=== PATIENT | male | born 1955 | race Caucasian/White ===

== ENCOUNTER 2017-09-16 09:53 | Observation (INO) ==
--- NOTE | 2017-09-16 09:45 | Anesthesia Evaluation PreOp ---
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 Any Significant HX Other Medical History: Diabetes Type II, GERD Anesthesia History: No Prior Anesthetic Complications, Past Anesthesia Alcohol Use: rarely Drug use: none Medications and Allergies 3 Allergy/AdvReac Type Severity Reaction Status Date / Time [facility] AdvReac See Verified 09/16/17 11:20 Comments - Meds/Allergy Pre-op Review Medications Reviewed: Yes Allergies Reviewed: Yes Beta Blockers on Current Med List: Yes If Beta Blockers taken, Date/Time (Last Dose taken): 09/16/2017 at 0700 Anesthesia Results - Labs Laboratory Tests 08/12/17 15:28 POC Creatinine 1.40 H - Imaging EKG: report reviewed (09/12/2017 SR, old anterior infarct) Anesthesia Exam O2 Sat Height 1.69 m Height 1.69 m Weight 99.79 kg Weight 99.79 kg O2 Sat by Pulse Oximetry 96 Vital Signs Temp Pulse Resp BP Pulse Ox 97.9 F 76 18 155/101 96 09/16/17 10:15 09/16/17 10:15 09/16/17 10:15 09/16/17 10:15 09/16/17 10:15 Blood Glucose* 157 Height: 5'6.5" Weight: 220 lbs NPO (# of Hours): 8 Pain Scale: 5 (left shoulder) Pain Scale Used: Numeric (1 - 10) - HEENT Pupil (Motor): EOMI Mallampati: III Teeth: Normal, Missing Denture Type: Lower: Partial Oral Opening: Greater than 3 - YEAST CAKE CUTTER LOC: Oriented YEAST CAKE CUTTER Motor: Normal RUE, Normal LUE, Normal RLE, Normal LLE, Normal Face YEAST CAKE CUTTER Sensory: Normal: RUE, LUE, RLE, LLE, Face - Cardiac Rhythm: Regular Murmur: None - Pulmonary Breath Sounds: bilateral Clear Respiratory Effort: Symmetrical Anesthesia Assess/Plan ASA Score: 3 Modified [place] Scale for Level of Consciousness: Cooperative, oriented, and tranquil Anesthetic Plan: General Monitoring Plan: Standard Monitors Recovery Plan: PACU
[2017-09-16] MEDS ORDERED: Lidocaine -MPF 1% 2 ML VIAL ID ONE (10:16)
[2017-09-16] MEDS ORDERED: CeFAZolin Syr 2,000MG/20 ML 2,000 MG/20 ML SYRINGE IVPB ONE (10:16)
[2017-09-16] MEDS ORDERED: Plasma-Lyte A (PH 7.4) 1,000 ML IVC SCH (10:30)
[2017-09-16] MEDS ORDERED: Ringers Solution, Lactated 1,000 ML IVC SCH (11:00)
--- NOTE | 2017-09-16 11:31 | History & Physical Report ---
Date of Encounter: 09/16/17 Time of Encounter: 11:31 24 Hour HP Update - Instructions Instructions: If the History and Physical is less than 30 days old and was completed prior to A.M. admission and or procedure and has NOT been updated on calendar day of procedure please complete this update prior to performing procedure. - Update Patient reports changes in Medical Condition: No Changes in examination, assessment, or condition: No Changes in Medication: No Preop tests/diagnostics Reviewed: Yes Surgery Remains Indicated: Yes Consent for Planned Operative Procedure(s) Verified: Yes - Pre-Operative Checklist Preoperative Checklist Indicated: Yes Prophylactic Antibiotic Ordered: Yes Home Medications Include Beta Bashir: Yes Is VTE Prophylaxis Indicated?: Yes
[2017-09-16] MEDS ORDERED: *HR* FentaNYL (PF) 100 MCG/2 ML VIAL ONE (12:22)
[2017-09-16] MEDS ORDERED: *HR* Midazolam HCl 2 MG/2 ML VIAL ONE (12:23)
[2017-09-16] MEDS ORDERED: *HR* Propofol 200 MG/20 ML VIAL IVP ONE (12:23)
[2017-09-16] MEDS ORDERED: *HR* Succinylcholine 200 MG/10 ML VIAL IVP ONE (12:25)
[2017-09-16] MEDS ORDERED: *HR* Rocuronium Bromide 50 MG/5 ML VIAL ONE ×2 (12:25→14:52)
[2017-09-16] MEDS ORDERED: *HR* Phenylephrine 10 MG/ML VIAL ONE (12:27)
[2017-09-16] MEDS ORDERED: Heparin 1,000 UNITS/500 mL 500 ML ONE (12:30)
[2017-09-16] MEDS ORDERED: Lidocaine -MPF 4% 5 ML AMPUL ONE (12:31)
[2017-09-16] MEDS ORDERED: Lacri-Lube 3.5 GM TUBE ONE (13:09)
[2017-09-16] MEDS ORDERED: EPHEDrine 50 MG/ML VIAL ONE (13:17)
[2017-09-16] MEDS ORDERED: Bupivacaine-MPF 0.25% 10 ML VIAL ONE (13:24)
[2017-09-16] MEDS ORDERED: Dexamethasone 4 MG/ML VIAL ONE (14:10)
[2017-09-16] MEDS ORDERED: Ondansetron 4 MG/2 ML VIAL ONE (14:10)
[2017-09-16] MEDS ORDERED: Mannitol 25% vial 12.5 GM/50 ML VIAL ONE ×3 (14:29→15:24)
[2017-09-16] MEDS ORDERED: *HR* HYDROmorphone 2 MG/ML SYRINGE ONE (15:06)
[2017-09-16] MEDS ORDERED: *HR* Promethazine 25 MG/ML VIAL IVP PRN (15:16)
[2017-09-16] MEDS ORDERED: *HR* HYDROmorphone (PF) 1 MG/ML SYRINGE IVP PRN (15:16)
[2017-09-16] MEDS ORDERED: Neostigmine Methylsulfate 3 MG/3 ML SYRINGE ONE (16:32)
--- NOTE | 2017-09-16 17:10 | Operative Note ---
Date of procedure: 09/16/17 Pre-op diagnosis: Left renal mass Post-op diagnosis: same Procedure: Left robotic-assisted laparoscopic partial nephrectomy. Implants: 19 Icelandic Darwin drain Enriquez catheter Complications: None Anesthesia: ANNAA Surgeon: Khoi Milligan Was there an assistant public defender present: Yes Ball Truing Machine Operator: Dean Bello Estimated blood loss (cc): 300 Specimen: left kidney tumor Condition: stable Disposition: PACU Procedure in Detail: Indications: Sundar is a 61-year-old man who presents with a left renal mass which was concerning for kidney cancer based upon an MRI. He elected to undergo a left robotic partial nephrectomy. He was informed of the risks of the procedure which include but are not limited to bleeding, infection, injury to other structures, need for further procedures, urine leak, bowel injury, need for complete nephrectomy, need for open conversion, and the risk of anesthesia. He is willing to proceed. Procedure After informed consent was obtained the patient was brought back to the operating room and placed in the supine position. A timeout was performed. Gen. anesthesia was then administered and an endotracheal tube was placed. Appropriate IV access and arterial lines were obtained. A Enriquez catheter was then placed. He was then placed in the flank position. His left side was up. All pressure points were padded. He was well secured to the table. He was then prepped and draped in the usual sterile fashion. We then marked out our assistant public defender port incision superior to the umbilicus. A 10 mm incision was then made. The Veress needle was introduced. 2 clicks were heard. It passed the water drop test. Insufflation was then initiated. Pressures were low consecutively. The abdomen was insufflated. Once the pressure was up to 15, we inserted the 12 mm laparoscopic port with the visual obturator. Entry was obtained into the abdomen. The bowel was surveyed below and there is no evidence of bowel injury. Robotic ports were then inserted 4 just lateral to the rectus muscle in a linear fashion starting at the subcostal margin extending down to the pelvis. The XI robot was then docked. A utilized Kelley bipolar forceps, curved monopolar scissors, and a Prograsp. There was an adhesion along the lateral abdominal wall. This was removed and a sharp fashion. This showed the white line of Toldt below. The bowel was reflected off the kidney along the white line of Toldt. There is a large amount of perirenal fat. The kidney was retracted anteriorly using the prograsp. Gerota 's fascia was entered. Careful dissection exposed the ureter. The ureter was then followed superiorly until the renal vein was I then turned my attention to identify the fat overlying the tumor. This was dissected off using cautery. Eventually I dissected down to the renal capsule. The fat was taken off the renal capsule to expose the tumor. The ultrasound was then obtained. I identified the circumference of the tumor and ascertained the depth at which it went. The area of incision through the capsule was identified. This was scored with electrocautery. I utilized a small amount of ICG to identify the normal parenchyma. The renal artery was clamped using the bulldog. The tumor was excised sharply using cold scissors. Once the tumor was removed I utilized a 3-O V-LOC x 2 to close the deeper vessels in a running fashion. Hemostasis was then achieved along these vessels. I then closed the capsule to itself using 0 Vicryl suture in an interrupted fashion with the sliding clip renorrhaphy technique. A Surgicel bolster was placed into the defect. One of the capsular sutures tore through. The defect was difficult to bring back together completely. The bolster helps to decrease the tension on the sutures. Hemostasis was good. The bulldog clamp was removed. 42 minutes of warm ischemia time was noted. Once the bulldog clamp was removed, FloSeal was applied to the resection area. Hemostasis seemed adequate. The Gerota's fascia was closed back over top of the kidney using a 3-0 Vicryl suture. The specimen was removed in a specimen bag. The specimen was extracted through the assistance port after opening the skin and fascia slightly with electrocautery. A 19 Icelandic Darwin drain was then placed. All the ports were then removed. The fascia of the extraction site was closed in a running fashion using an 0 Vicryl suture. The wounds were closed using 4-0 Monocryl suture. The drain was secured to the skin using a Nylon suture. Local anesthetic was infiltrated into the wounds. The abdomen was then washed and dried and Dermabond was applied to the wounds. The patient was then awakened from general anesthesia and brought to recovery room in good condition. All sponge, needle, and instrument counts were correct.
--- NOTE | 2017-09-16 18:01 | Anesthesia Evaluation Post Op ---
Date of Encounter: 09/16/17 Time of Encounter: 18:00 - Vital Signs Vital Signs: vss - Lungs Lungs: Clear Ascult./Percussion - Airway Airway: Non-obstructed - Cardiovascular Regular Rate, Baseline Rhythm - Mental Status Mental Status: Alert & Oriented, Answers Appropriately - Pain Pain Scale: 0 Pain Scale used: Numeric (1 - 10) - Nausea Vomiting Nausea Vomiting: Not Present - Hydration Hydration: Tolerates oral liquids, Ice chips - Discharge PostOp Status: Transfer Patient to floor
[2017-09-16] MEDS ORDERED: Dextrose Gel 15 GM/37.5 ML TUBE PO PRN ×2 (18:05)
[2017-09-16] MEDS ORDERED: Naloxone 0.4 MG/ML INJ IVP PRN (18:05)
[2017-09-16] MEDS ORDERED: D5% in Water 1,000 ML IVC PRN (18:05)
[2017-09-16] MEDS ORDERED: *HR* Dextrose 50 % in Water (Syg) 50 ML SYRINGE IVP PRN (18:05)
[2017-09-16] MEDS ORDERED: *HR* Promethazine 25 MG/ML VIAL IV PRN (18:05)
[2017-09-16] MEDS ORDERED: traZODone 50 MG TABLET PO PRN (18:05)
[2017-09-16] MEDS ORDERED: Loratadine 10 MG TABLET PO PRN (18:05)
[2017-09-16] MEDS ORDERED: *HR* LORazepam 0.5 MG TABLET PO PRN (18:05)
[2017-09-16] MEDS: 0.9 % Sodium Chloride 1,000 ML IVC SCH (18:18)
[2017-09-16] MEDS: Insulin LISPRO 300 UNITS/3 ML VIAL SQ SCH (18:25)
[2017-09-16] MEDS: Divalproex (24 HR) 250 MG TABLET PO SCH (20:22)
[2017-09-16] MEDS: *HR* OxyCODONE Immed Rel 5 MG TABLET PO PRN (20:23)
[2017-09-16 21:34] LABS: Hemoglobin 14.2 g/dL (12.9-16.9)
[2017-09-17] MEDS: Ondansetron 4 MG/2 ML VIAL IVP PRN ×2 (00:18→07:44)
[2017-09-17] MEDS: Acetaminophen 325 MG TABLET PO PRN ×3 (00:22→21:44)
[2017-09-17] MEDS: 0.9 % Sodium Chloride 1,000 ML IVC SCH ×2 (03:04→11:39)
[2017-09-17 05:22] LABS: Basophils % 0.2 %; Hematocrit 41.7 % (37.5-50.1); Hemoglobin 14.3 g/dL (12.9-16.9); Immature Granulocytes % 0.6 % (0-4); Lymphocytes # 1.1 K/mcL (0.6-4.6); Lymphocytes % 10.1 %; Mean Corpuscular HGB Conc 34.3 g/dL (31.6-35.5); Mean Corpuscular Volume 90.5 fL (83.0-100.0); Mean Platelet Volume 12.1 fL (9.4-12.4); Monocytes # 0.8 K/mcL (0.0-1.3); Platelet Count 129 K/mcL (140-400); Red Blood Count 4.61 M/mcL (4.19-5.50); Red Cell Distribution Width 12.3 % (11.5-14.5); Segmented Neutrophils % 82.1 %
[2017-09-17] MEDS: Insulin LISPRO 300 UNITS/3 ML VIAL SQ SCH ×5 (05:25→23:52)
[2017-09-17 05:45] LABS: BUN/Creatinine Ratio 17 (6-26); Blood Urea Nitrogen 19 mg/dL (8-23); Calcium 8.9 mg/dL (8.6-10.3); Carbon Dioxide 28 mEq/L (23-29); Chloride 104 mEq/L (98-107); Glucose 181 mg/dL (70-105); Osmolality,Calculated 295 (280-300); Potassium 4.3 mEq/L (3.5-5.1); Sodium 139 mEq/L (136-145); eGFR For African Americans > 60 (> 60); eGFR For Non-African Americans > 60 (> 60)
[2017-09-17 06:19] LABS: Neutrophils # 8.9 K/mcL (1.6-8.9)
[2017-09-17 06:20] LABS: Platelet Estimate Normal (Normal)
--- NOTE | 2017-09-17 07:49 | Urology Progress Note ---
Date of Encounter: 09/17/17 Time of Encounter: 07:45 - Assessment and Plan (1) Left kidney mass Current Visit: Yes Status: Acute Assessment and plan: 61-year-old man status post left robotic partial nephrectomy. Postoperative day #1. 1. Ambulate 3 times per day. 2. Continue clear liquid diet. Await resolution of nausea. 3. Labs are okay today. We'll restart lisinopril for hypertension. 4. Discontinue Enriquez catheter. I will continue the RASHMI drain. 5. For prophylaxis, will continue omeprazole and SCDs. We'll hold off on subcutaneous heparin to minimize bleeding risk. Progress Note Narrative: 61-year-old man status post left robotic partial nephrectomy. Postoperative day #1. He had some hypertension overnight and required hydralazine. Urine output has been good. His pain is adequately controlled. He is breathing well. He notes some nausea. He had 1 bout of emesis last night. Objective Initial Vital Signs Temp Pulse Resp BP Pulse Ox 97.9 F 76 18 155/101 96 09/16/17 10:15 09/16/17 10:15 09/16/17 10:15 09/16/17 10:15 09/16/17 10:15 - General physical appearance Present: well developed, well nourished, no distress - Respiratory Present: normal respiratory effort - Abdomen Present: soft (Appropriately tender. Incisions are clean dry and intact. RASHMI with sanguinous drainage) - Genitourinary Urine Appearance: Present: Clear - Integumentary Present: no rash - Labs 09/17/17 04:34 09/17/17 04:34 Diabetes panel 09/17/17 Range/Units 04:34 Sodium 139 (136-145) mEq/L Potassium 4.3 (3.5-5.1) mEq/L Chloride 104 (98-107) mEq/L Carbon Dioxide 28 (23-29) mEq/L BUN 19 (8-23) mg/dL Creatinine 1.09 (0.70-1.30) mg/dL Glucose 181 H (70-105) mg/dL Calcium 8.9 (8.6-10.3) mg/dL Calcium panel 09/17/17 Range/Units 04:34 Calcium 8.9 (8.6-10.3) mg/dL Pituitary panel 09/17/17 Range/Units 04:34 Sodium 139 (136-145) mEq/L Potassium 4.3 (3.5-5.1) mEq/L Chloride 104 (98-107) mEq/L Carbon Dioxide 28 (23-29) mEq/L BUN 19 (8-23) mg/dL Creatinine 1.09 (0.70-1.30) mg/dL Glucose 181 H (70-105) mg/dL Calcium 8.9 (8.6-10.3) mg/dL Adrenal panel 09/17/17 Range/Units 04:34 Sodium 139 (136-145) mEq/L Potassium 4.3 (3.5-5.1) mEq/L Chloride 104 (98-107) mEq/L Carbon Dioxide 28 (23-29) mEq/L BUN 19 (8-23) mg/dL Creatinine 1.09 (0.70-1.30) mg/dL Glucose 181 H (70-105) mg/dL Calcium 8.9 (8.6-10.3) mg/dL - VTE Documentation of Mechanical Device: Intermittent pneumatic compression device Consult Discharge Plan - Plan [facility]errals: [facility] [Primary Care Provider] -
[2017-09-17] MEDS: CeFAZolin Premix DUPLEX 2,000 MG/50 ML BAG IVPB SCH ×3 (07:50→16:35)
[2017-09-17] MEDS: hydroCHLOROthiazide 25 MG TABLET PO SCH (09:59)
[2017-09-17] MEDS: amLODIPine 5 MG TABLET PO SCH (09:59)
[2017-09-17] MEDS: BuPROPion SR (12 HR) 150 MG TABLET PO SCH (10:00)
[2017-09-17] MEDS: Lisinopril 20 MG TABLET PO SCH (10:01)
[2017-09-17] MEDS: *HR* HYDROmorphone (PF) 1 MG/ML SYRINGE IVP PRN ×2 (10:44→13:50)
[2017-09-17] MEDS: Divalproex (24 HR) 250 MG TABLET PO SCH (21:44)
[2017-09-18] MEDS: 0.9 % Sodium Chloride 1,000 ML IVC SCH (01:55)
[2017-09-18] MEDS: Ondansetron 4 MG/2 ML VIAL IVP PRN (03:59)
[2017-09-18] MEDS: Insulin LISPRO 300 UNITS/3 ML VIAL SQ SCH ×3 (05:48→18:01)
[2017-09-18 06:20] LABS: Basophils % 0.2 %; Hematocrit 40.8 % (37.5-50.1); Hemoglobin 13.6 g/dL (12.9-16.9); Immature Granulocytes % 0.9 % (0-4); Lymphocytes # 1.4 K/mcL (0.6-4.6); Lymphocytes % 10.8 %; Mean Corpuscular HGB Conc 33.3 g/dL (31.6-35.5); Mean Corpuscular Hemoglobin 30.8 pg (28.0-33.3); Mean Corpuscular Volume 92.3 fL (83.0-100.0); Mean Platelet Volume 11.3 fL (9.4-12.4); Monocytes # 1.1 K/mcL (0.0-1.3); Monocytes % 8.6 %; Neutrophils # 10.1 K/mcL (1.6-8.9); Platelet Count 137 K/mcL (140-400); Red Blood Count 4.42 M/mcL (4.19-5.50); Red Cell Distribution Width 12.4 % (11.5-14.5); Segmented Neutrophils % 79.5 %
[2017-09-18 07:02] LABS: BUN/Creatinine Ratio 14 (6-26); Blood Urea Nitrogen 16 mg/dL (8-23); Calcium 9.3 mg/dL (8.6-10.3); Carbon Dioxide 28 mEq/L (23-29); Chloride 99 mEq/L (98-107); Glucose 220 mg/dL (70-105); Magnesium 1.5 mg/dL (1.6-2.6); Osmolality,Calculated 290 (280-300); Phosphorous 2.7 mg/dL (2.7-4.5); Potassium 3.8 mEq/L (3.5-5.1); Sodium 136 mEq/L (136-145); eGFR For African Americans > 60 (> 60); eGFR For Non-African Americans > 60 (> 60)
--- NOTE | 2017-09-18 07:09 | Urology Progress Note ---
Date of Encounter: 09/18/17 Time of Encounter: 07:07 - Assessment and Plan (1) Left kidney mass Current Visit: Yes Status: Acute Assessment and plan: Status post left robotic partial nephrectomy. Postoperative day #2. 1. Continue ambulation 3 times per day. 2. Advance diet as tolerated. 3. We'll provide Dulcolax suppository. 4. I will replace magnesium. 5. I'll reassess this afternoon. Awaiting improvement of bowel function prior to discharge. Progress Note Narrative: Postoperative + 2 status post left robotic partial nephrectomy. Drain output has been good. His nausea has improved. He denies any flatus. He is tolerating liquids. He has had some incontinence. His bladder scan today showed 160 mL. Objective Initial Vital Signs Temp Pulse Resp BP Pulse Ox 97.9 F 76 18 155/101 96 09/16/17 10:15 09/16/17 10:15 09/16/17 10:15 09/16/17 10:15 09/16/17 10:15 - General physical appearance Present: well developed, well nourished, no distress - Respiratory Present: normal respiratory effort - Abdomen Present: distended (Incisions are clean, dry, and intact. RASHMI was serosanguineous drainage. He is somewhat distended.) - Genitourinary Urine Appearance: Present: Clear - Labs 09/18/17 04:44 09/18/17 04:44 Diabetes panel 09/18/17 Range/Units 04:44 Sodium 136 (136-145) mEq/L Potassium 3.8 (3.5-5.1) mEq/L Chloride 99 (98-107) mEq/L Carbon Dioxide 28 (23-29) mEq/L BUN 16 (8-23) mg/dL Creatinine 1.13 (0.70-1.30) mg/dL Glucose 220 H (70-105) mg/dL Calcium 9.3 (8.6-10.3) mg/dL Calcium panel 09/18/17 Range/Units 04:44 Calcium 9.3 (8.6-10.3) mg/dL Phosphorus 2.7 (2.7-4.5) mg/dL Pituitary panel 09/18/17 Range/Units 04:44 Sodium 136 (136-145) mEq/L Potassium 3.8 (3.5-5.1) mEq/L Chloride 99 (98-107) mEq/L Carbon Dioxide 28 (23-29) mEq/L BUN 16 (8-23) mg/dL Creatinine 1.13 (0.70-1.30) mg/dL Glucose 220 H (70-105) mg/dL Calcium 9.3 (8.6-10.3) mg/dL Adrenal panel 09/18/17 Range/Units 04:44 Sodium 136 (136-145) mEq/L Potassium 3.8 (3.5-5.1) mEq/L Chloride 99 (98-107) mEq/L Carbon Dioxide 28 (23-29) mEq/L BUN 16 (8-23) mg/dL Creatinine 1.13 (0.70-1.30) mg/dL Glucose 220 H (70-105) mg/dL Calcium 9.3 (8.6-10.3) mg/dL - VTE Documentation of Mechanical Device: Intermittent pneumatic compression device Consult Discharge Plan - Plan [facility]errals: [facility] [Primary Care Provider] -
[2017-09-18] MEDS: BuPROPion SR (12 HR) 150 MG TABLET PO SCH (07:48)
[2017-09-18] MEDS: hydroCHLOROthiazide 25 MG TABLET PO SCH (07:49)
[2017-09-18] MEDS: amLODIPine 5 MG TABLET PO SCH (07:49)
[2017-09-18] MEDS: Lisinopril 20 MG TABLET PO SCH (07:52)
[2017-09-18] MEDS ORDERED: Bisacodyl 10 MG RECTAL SUPPOSITORY RC SCH (09:00)
[2017-09-18] MEDS ORDERED: *HR* GlipiZIDE 5 MG TABLET PO SCH (09:00)
[2017-09-18 16:05] VITALS: BP 123/81
[2017-09-18] MEDS: *HR* OxyCODONE Immed Rel 5 MG TABLET PO PRN (16:16)
--- NOTE | 2017-09-18 17:05 | Discharge Summary ---
Date of Encounter: 09/18/17 Time of Encounter: 17:02 - Discharge Diagnosis (1) Left kidney mass Priority: Primary Status: Acute - Discharge Medications Prescriptions: Docusate [Colace] 100 mg PO BID #60 capsule Oxycodone HCl/Acetaminophen [Percocet 5-325 mg Tablet] 1 each PO Q4H PRN #25 tablet PRN Reason: Pain Home Medications: Amlodipine Besylate 2.5 mg PO DAILY 09/16/17 [History] Aspirin [Lo-Dose Aspirin EC] 81 mg PO DAILY 09/16/17 [History] Atorvastatin [Lipitor] 40 mg PO HS 09/16/17 [History] BuPROPion SR (12 HR) [Wellbutrin SR] 150 mg PO DAILY 09/16/17 [History] Carvedilol [Coreg] 25 mg PO BID 09/16/17 [History] Divalproex (24 HR) [Depakote ER (24 HR)] 1,250 mg PO HS 09/16/17 [History] L. Acidophilus/Pectin, [place] [Acidophilus Probiotic Capsule] 1 cap PO DAILY [History] LORazepam [Ativan] 0.5 mg PO BID PRN 09/16/17 [History] Lisinopril [Zestril] 20 mg PO DAILY 09/16/17 [History] Loratadine [Allergy Relief] 10 mg PO DAILY PRN 09/16/17 [History] Multivitamin [One Daily Multivitamin] 1 tab PO DAILY 09/16/17 [History] [place]-3/Dha/Epa/Fish Oil [Fish Oil 1,000 mg Softgel] 1 tab PO DAILY 09/16/17 [ History] Omeprazole [PriLOSEC] 20 mg PO DAILY 09/16/17 [History] Sildenafil Citrate [Viagra] 100 mg PO AD PRN 09/16/17 [History] Tamsulosin [Flomax] 0.4 mg PO DAILY 09/16/17 [History] Trazodone HCl 100 mg PO HS PRN 09/16/17 [History] Ubidecarenone [Co Q-10] 10 mg PO DAILY 09/16/17 [History] Zolpidem [Ambien] 5 mg PO HS PRN 09/16/17 [History] glipiZIDE [Glucotrol] 2.5 mg PO DAILY 09/16/17 [History] hydroCHLOROthiazide [Hydrochlorothiazide] 25 mg PO DAILY 09/16/17 [History] Docusate [Colace] 100 mg PO BID #60 capsule 09/18/17 [Rx] Oxycodone HCl/Acetaminophen [Percocet 5-325 mg Tablet] 1 each PO Q4H PRN #25 tablet 09/18/17 [Rx] Allergies/Adverse Reactions: 3 Allergy/AdvReac Type Severity Reaction Status Date / Time [place] AdvReac See Verified 09/16/17 11:20 Comments Labs on day of discharge: Labs from last 24 hours 09/18/17 09/18/17 09/18/17 11:48 05:21 04:44 WBC RBC Hgb Hct MCV MCH MCHC RDW Plt Count MPV Immature Gran % Seg Neutrophils % Lymphocytes % Monocytes % Eosinophils % Basophils % Neutrophils # Lymphocytes # Monocytes # Eosinophils # Basophils # Sodium 136 Potassium 3.8 Chloride 99 Carbon Dioxide 28 BUN 16 Creatinine 1.13 Est GFR ( Amer) > 60 Est GFR (Non-Af Amer) > 60 BUN/Creatinine Ratio 14 Glucose 220 H POC Glucose 143 H 213 H Calculated Osmolality 290 Calcium 9.3 Phosphorus 2.7 Magnesium 1.5 L 09/18/17 09/17/17 09/17/17 04:44 23:37 20:53 WBC 12.7 H RBC 4.42 Hgb 13.6 Hct 40.8 MCV 92.3 MCH 30.8 MCHC 33.3 RDW 12.4 Plt Count 137 L MPV 11.3 Immature Gran % 0.9 Seg Neutrophils % 79.5 Lymphocytes % 10.8 Monocytes % 8.6 Eosinophils % 0.0 Basophils % 0.2 Neutrophils # 10.1 H Lymphocytes # 1.4 Monocytes # 1.1 Eosinophils # 0.0 Basophils # 0.0 Sodium Potassium Chloride Carbon Dioxide BUN Creatinine Est GFR ( Amer) Est GFR (Non-Af Amer) BUN/Creatinine Ratio Glucose POC Glucose 192 H 170 H Calculated Osmolality Calcium Phosphorus Magnesium 09/17/17 16:47 WBC RBC Hgb Hct MCV MCH MCHC RDW Plt Count MPV Immature Gran % Seg Neutrophils % Lymphocytes % Monocytes % Eosinophils % Basophils % Neutrophils # Lymphocytes # Monocytes # Eosinophils # Basophils # Sodium Potassium Chloride Carbon Dioxide BUN Creatinine Est GFR ( Amer) Est GFR (Non-Af Amer) BUN/Creatinine Ratio Glucose POC Glucose 200 H Calculated Osmolality Calcium Phosphorus Magnesium Date of admission: 09/17/17 21:02 [facility] physician[facility] Consults: 09/17/17 07:44 Consult to Physical Therapy [CONS] Routine Comment: Evaluate, develop and implement POC Reason for Consult: Assist with ambulation. Discharging clinician: Khoi Milligan Anticipated date of discharge: 09/18/17 - Patient Status Disposition: Home, Self-Care Condition: Good Functional capacity at discharge: independent ambulation Overall status at discharge: patient is progressing back to baseline - Discharge Instructions Follow Up With: Khoi Milligan MD [Partnered Physician] - (2-3 weeks for postoperative check.) Additional Instructions: 1. No heavy lifting greater than 20 pounds x2 weeks. 2. No tub baths x2 weeks. 3. May shower tomorrow. 4. He should follow up in 2 weeks for postoperative check. 5. He should return for any fevers, chills, nausea, vomiting, or significant swelling/ecchymosis. 6. He should hold aspirin for 1 week. - Diet and Activity Activity: increase activity as tolerated Diet: advance to your usual diet - Hospital Course Hospital course: Mr. Aden is a 61 year old male who had a left renal mass. He underwent a left robotic partial nephrectomy on September 16, 2017. He did well after surgery. As his bowel function improved, we advanced his diet. On postoperative day #2 his pain was well controlled. His drain was removed that day. He was then discharged home later that day. - Time Spent with Patient Total time spent providing and/or coordinating discharge services: Less than 30 minutes Exam Initial Vital Signs Temp Pulse Resp BP Pulse Ox 97.9 F 76 18 155/101 96 09/16/17 10:15 09/16/17 10:15 09/16/17 10:15 09/16/17 10:15 09/16/17 10:15 - General physical appearance Present: well developed, well nourished, no distress - Eyes Absent: icteric - ENT Present: normal nares - Neck Present: trachea midline - Respiratory Present: normal respiratory effort - Cardiovascular Cardiovascular exam IM: RRR - Abdomen Abdomen: Present: soft - VTE Documentation of Mechanical Device: Intermittent pneumatic compression device
== END 2017-09-18 19:14 | disposition home or self-care (01) ==
LOC: 3ANU 09:53 → SAMDAY 09:53 → 3ANU 18:02
PROVIDERS: ADMIT Urology; ATTEND Urology